=== PATIENT | male | born 1995 | race African-American/Black ===

== ENCOUNTER 2022-08-24 22:01 | Emergency (ER) | payer SELFPAY ==
[2022-08-24 22:02] VITALS: BP 173/98; PULSE 100; RESP 20; TEMP 35.6; O2SAT 97
--- NOTE | 2022-08-24 22:48 | ED.WOUNDLAC ---
HPI - Wound/Laceration General Chief Complaint: Wound/Laceration Stated Complaint: laceration Time Seen by Provider: 08/24/22 22:04 History of Present Illness HPI narrative: 27-year-old male presents to the emergency room for evaluation of a laceration to his left index finger. Patient states that he was cutting lettuce 30 minutes prior to arrival when he accidentally cut himself. Tetanus is not up-to-date. Related Data Allergies Allergy/AdvReac Type Severity Reaction Status Date / Time No Known Allergies Allergy Unverified 12/31/15 15:16 Review of Systems Review of Systems: CONSTITUTIONAL: Denies fever, chills, or sweats. EYES: Denies visual changes, redness, or discharge. ENT: Denies rhinorrhea, congestion, sore throat, or otalgia. CARDIOVASCULAR: Denies chest pain, palpitations, or edema. RESPIRATORY: Denies cough or dyspnea. GASTROINTESTINAL: Denies abdominal pain, nausea, vomiting, or diarrhea. GENITOURINARY: Denies dysuria or hematuria. SKIN: Reports laceration to his left middle finger ck pain, joint pain, or myalgia. NEUROLOGIC: Denies headache, numbness, dizziness, or weakness. PSYCHIATRIC: Denies anxiety or depression. Exam Narrative: GENERAL: Well-appearing, well-nourished, no physical limitations, and in no acute distress. HEAD: Normocephalic, atraumatic. EYES: Conjunctivae normal, PERRLA and EOMI. CHEST: Clear to auscultation. No respiratory distress. No wheezes rales or rhonchi. HEART: Regular rate and rhythm. No murmur heard. Normal peripheral pulses. EXTREMITIES: Normal range of motion. No edema. No clubbing or cyanosis SKIN: Left middle finger: 3 and half centimeter curved laceration to the tip of the finger, no nail involvement NEURO: No focal deficits. Alert and oriented x3. MAEW. CN's II-XI intact bilaterally, normal gait PSYCH: Cooperative. Normal mood and affect. Course Vital Signs Vital signs: Vital Signs Temperature 35.6 C L 08/24/22 22:02 Pulse Rate 100 08/24/22 22:02 Respiratory Rate 20 08/24/22 22:02 Blood Pressure 173/98 H 08/24/22 22:02 Pulse Oximetry 97 08/24/22 22:02 Oxygen Delivery Room Air 08/24/22 22:02 Temperature 35.6 C L 08/24/22 22:02 Pulse Rate 100 08/24/22 22:02 Respiratory Rate 20 08/24/22 22:02 Blood Pressure 173/98 H 08/24/22 22:02 Pulse Oximetry 97 08/24/22 22:02 Oxygen Delivery Room Air 08/24/22 22:02 Procedures Laceration Laceration 1: Date: 08/24/22 Time: 22:53 Site: hand Side (If applicable): left Size (cm): 3.5 Description: flap Depth: simple, single layer Local Anesthetic: lidocaine 1% Amount of anesthesia used (mL): 4 Pre-repair: irrigated ====== Skin Level ====== Skin layer closed with: nylon Size (cm): 5-0 Number of sutures: 6 Technique: simple, interrupted ====== Subcutaneous Layer ====== ====== Muscle Layer ====== ====== Tendon Layer ====== Discharge Plan Discharge Clinical Impression: Laceration Patient Disposition: Home, Self-Care Condition: Stable Instructions: Antibiotic Form, Laceration (ED) Additional Instructions: Take antibiotics as prescribed. Tylenol and ibuprofen as needed for discomfort. Keep your wound covered clean and dry. Stitches come out in 10 days. Monitor for signs of infection which include redness, swelling, purulent drainage and increased pain. Prescriptions: New cephalexin 500 mg tablet 500 mg PO Q12H 7 Days Qty: 14 0RF Follow-up/Referrals: PHYSICIAN,CELL ROOM SUPERVISOR [Primary Care Provider] - Time of Disposition: 22:50
[2022-08-24] MEDS: TETANUS,DIPHTHERIA,AC PERTUSSIS ADULT (0.5 ML) BOOSTRIX IM (22:54)
== END 2022-08-24 23:00 | disposition home or self-care (01) ==
PROVIDERS: Emergency Provider Nurse Practitioner Family
DX: Z23 Encounter for immunization (principal); Y93.G1 Activity, food preparation and clean up; W26.9XXA Contact with unspecified sharp object(s), initial encounter
CPT/HCPCS: 12002; 90471; 90715; 99283

== ENCOUNTER 2024-03-07 13:15 | Observation (INO) | payer SELFPAY ==
[2024-03-07] VITALS (15 sets, daily range): BP systolic 183–263; BP diastolic 111–149; PULSE 89–133; RESP 12–23; TEMP 36.8–37.7; O2SAT 97–99; BMI 30.7
--- NOTE | ~2024-03-07 | XR_ITS ---
EXAMINATION: XR chest 2V DATE: 03/07/2024 13:48 INDICATION: Mid chest pain. Uncontrolled hypertension. TECHNIQUE: AP and lateral views of the chest were obtained. COMPARISON: None FINDINGS: The lungs are clear with no focal airspace opacities, pulmonary edema, pleural effusion or pneumothor ax. The cardiomediastinal silhouette is normal. Visualized bones and soft tissues are unremarkable. IMPRESSION: 1. No acute cardiopulmonary disease. Reviewed, dictated and finalized at location A.
--- NOTE | 2024-03-07 13:16 | ECG_ITS ---
Test Date: 2024-03-07 13:22:14 Measurements Intervals [place] Rate: 131 P: 52 [place]: 96 QRS: 27 QRSD: 85 T: 69 QT: 294 QTc: 434 Interpretive Statements SINUS TACHYCARDIA WITH SHORT [place] INTERVAL NONSPECIFIC ST-T WAVE ABNORMALITY- DIFFUSE LEADS BASELINE ARTIFACT- I, III, AVR, AVL, V1-V4 ABNORMAL ECG No previous ECG available for comparison Electronically Signed On 03-07-2024 13:37:33 CDT by Dominick Key D.O.
[2024-03-07 13:33] LABS: Basophils Absolute Auto 0.1 K/mm3 (0.0-0.1); Basophils Percent Auto 0.6 % (0.2-1.2); Eosinophils Absolute Auto 0.1 K/mm3 (0-0.3); Eosinophils Percent Auto 0.5 % (0-4.4); Hematocrit 46.9 % (42.0-52.0); Hemoglobin 17.2 g/dL (14.0-18.0); Immature Granulocyte Absolute 0.03 K/mm3 (0.00-0.031); Immature Granulocyte Percent A 0.3 % (0-0.5); Lymphocytes Absolute Auto 2.49 K/mm3 (0.9-3.2); Lymphocytes Percent Auto 24.2 % (18.3-44.2); Mean Corpuscular HGB Conc 36.7 g/dl (32-36); Mean Corpuscular Hemoglobin 32.5 pg (26-34); Mean Corpuscular Volume 88.7 fl (80-100); Mean Platelet Volume 9.8 fl (7.4-10.4); Monocytes Absolute Auto 0.9 K/mm3 (0.1-0.6); Monocytes Percent Auto 8.9 % (2.6-8.5); Neutrophils Absolute Auto 6.7 K/mm3 (1.3-6.7); Neutrophils Percent Auto 65.5 % (45.5-73.1); Platelet Count Result 238 k/mm3 (150-375); Red Blood Count 5.29 M/mm3 (4.6-6.20); Red Cell Distribution Width 11.9 % (11.5-14.5); White Blood Count 10.3 K/mm3 (4.5-10.0)
[2024-03-07 13:45] LABS: INR 0.9; Prothrombin Time 12.8 Seconds (11.1-14.7)
[2024-03-07 13:46] LABS: Partial Thromboplastin Time 24.3 Seconds (22.3-36.8)
[2024-03-07 14:01] LABS: Troponin I < 0.012 ng/mL (0.000-0.034)
[2024-03-07 14:03] LABS: Alanine Aminotransferase 49 U/L (6-50); Alkaline Phosphatase 85 U/L (38-126); Anion Gap 16 mmol/L (4-12); Aspartate Amino Transferase 59 U/L (17-59); Blood Urea Nitrogen 8 mg/dL (9-20); Calcium 9.6 mg/dL (8.4-10.2); Carbon Dioxide 23 mmol/L (22-30); Chloride 94 mmol/L (98-107); Estimated CRCL calculation 113 ml/min; Estimated Glomerular Filt Rate > 60; Glucose 586 mg/dL (65-110); Lipase 194 U/L (23-300); Potassium 4.5 mmol/L (3.4-5.0); Sodium 133 mmol/L (137-145)
--- NOTE | 2024-03-07 14:10 | ED.GENADULT ---
HPI - General Adult General Chief complaint: Chest Pain Stated complaint: chest pain, htn Time Seen by Provider: 03/07/24 13:33 History of Present Illness HPI narrative: 29-year-old male presenting emergency department for evaluation for multiple complaints including pain into his left shoulder, hypertension. Patient was also found to be very hyperglycemic. Patient states he has not been to a doctor in many years. Patient denies any prior diagnosis of diabetes or hypertension. Related Data Home Medications Medication Instructions Recorded Confirmed diphenhydramine HCl 50 mg capsule 100 mg PO HS PRN Insomnia 03/07/24 03/07/24 (Sleep Aid (diphenhydramine)) Allergies Allergy/AdvReac Type Severity Reaction Status Date / Time No Known Allergies Allergy Unverified 12/31/15 15:16 Review of Systems Review of Systems: All systems reviewed & are unremarkable except as noted in HPI and below PMFSH Past Medical History Medical History (Updated 03/07/24 @ 19:47 by Anum Garcia APRN) Alcohol abuse Cocaine abuse Sleep apnea Family History Family History Other Skin cancer Asthma Lung cancer Sibling Diabetes mellitus Father Thyroid cancer Hypertension Mother Hypertension Social History Social History Smoking status: Current every day smoker Tobacco type: e-cigarettes/vaping Alcohol intake: current Drinks per week: 90 Substance use type: marijuana and crack/cocaine Last use: cocaine 03/06/24, marijuana 03/07/24 Do You Feel Safe in your Home?: Yes Lack of Transportation: No Lack of Food: Never True Current Housing: I Have Housing Concerned About Future Housing: No Difficulty Paying Gas/Electric Bills: No Difficulty Paying for Meds: No Currently Unemployed: No Education: Trade/Vocational Certificate Difficulty w/ Childcare or Family Care: No Spiritual care concerns: No Course Course Emergency Course: Patient's blood pressure was treated with hydralazine and metoprolol but still remained elevated. Patient has remained hyperglycemic and will be admitted for new onset diabetes. Vital Signs Vital signs: Vital Signs Temperature 99.2 F 03/07/24 13:19 Pulse Rate 133 H 03/07/24 13:19 Respiratory Rate 23 H 03/07/24 13:19 Blood Pressure 263/149 H 03/07/24 13:19 Pulse Oximetry 99 03/07/24 13:19 Oxygen Delivery Room Air 03/07/24 13:19 Temperature 98.3 F 03/07/24 20:00 Pulse Rate 99 03/07/24 20:00 Respiratory Rate 18 03/07/24 20:00 Blood Pressure 191/111 H 03/07/24 20:00 Pulse Oximetry 99 03/07/24 20:00 Oxygen Delivery Room Air 03/07/24 20:00 Medical Decision Making MDM Narrative Medical decision making narrative: 29-year-old male present to the emergency department for evaluation for hypertension and was found to be hyperglycemic. Patient is afebrile but does have a leukocytosis of 10.3 and hemoglobin of 17.2. Patient has a normal creatinine and a minor anion gap. Patient's blood goes close was elevated at 500. Patient's beta hydroxybutyrate was not significantly elevated. I do not think this is DKA. Patient was treated IV fluids and insulin boluses and patient's labs did improve. Case was discussed with hospitalist patient was accepted for admission to the IMU for hypertension and hyperglycemia Differential Diagnosis Differential Diagnosis: new onset diabetes, hypertension, ACS, pulmonary embolism Vital Signs Vital Signs: Vital Signs Temperature 99.2 F 03/07/24 13:19 Pulse Rate 133 H 03/07/24 13:19 Respiratory Rate 23 H 03/07/24 13:19 Blood Pressure 263/149 H 03/07/24 13:19 Pulse Oximetry 99 03/07/24 13:19 Oxygen Delivery Room Air 03/07/24 13:19 Temperature 98.3 F 03/07/24 20:00 Pulse Rate 99 03/07/24 20:00 Respiratory Rate 18 03/07/24 20:00 Blood Pressure 191/11
[2024-03-07] MEDS: SODIUM CHLORIDE 0.9% IV 1,000 ML 999 ML IV CONT ×2 (14:26→15:07)
[2024-03-07] MEDS: hydrALAZINE HCL 20 MG/ML VIAL 10 MG IV PUSH ×2 (14:26→15:07)
[2024-03-07] MEDS: INSULIN HUMAN REGULAR (*BKC) 100 UNITS/ML 9 UNITS IV PUSH (14:27)
[2024-03-07] MEDS: METOPROLOL TARTRATE 25 MG TABLET PO (15:07)
[2024-03-07 15:26] LABS: Glucose Point of Care 427 mg/dl (65-105)
--- NOTE | 2024-03-07 16:17 | ECG_ITS ---
Test Date: 2024-03-07 16:19:24 Measurements Intervals [place] Rate: 89 P: 57 [place]: 147 QRS: 26 QRSD: 85 T: 46 QT: 376 QTc: 459 Interpretive Statements SINUS RHYTHM MODERATE T-WAVE ABNORMALITY, CONSIDER ANTEROLATERAL ISCHEMIA BASELINE ARTIFACT- I, II ABNORMAL ECG Compared to ECG 03/07/2024 13:22:14 HEART RATE HAS DECRASED T-wave abnormality now present Electronically Signed On 03-07-2024 20:39:21 CDT by Dominick Key D.O.
[2024-03-07 16:32] LABS: Troponin I < 0.012 ng/mL (0.000-0.034)
[2024-03-07 16:37] LABS: Glucose Point of Care 327 mg/dl (65-105)
[2024-03-07] MEDS: SODIUM CHLORIDE 0.9% IV 1,000 ML 125 ML IV CONT (16:52)
--- NOTE | 2024-03-07 17:02 | PC.NURSE ---
attempted to call IMU at this time to give report but the nurse was unavailable
[2024-03-07 17:38] LABS: Anion Gap 9 mmol/L (4-12); Blood Urea Nitrogen 8 mg/dL (9-20); Calcium 8.5 mg/dL (8.4-10.2); Carbon Dioxide 23 mmol/L (22-30); Chloride 104 mmol/L (98-107); Estimated CRCL calculation 147 ml/min; Estimated Glomerular Filt Rate > 60; Glucose 302 mg/dL (65-110); Potassium 3.7 mmol/L (3.4-5.0); Sodium 136 mmol/L (137-145)
--- NOTE | 2024-03-07 17:48 | ADMGEN ---
This patient, [place], was admitted to IMU Room 212-01. Patient/family oriented to hospital policies and general routines including ID bracelet, bed and alarms, visiting hours, pain management, procedures, bathroom and other care routines, personal items, smoking policy, room service/diet, and visiting hours. Information on how to activate the Rapid Response Team has been discussed. Patient/Family are encouraged to report perceived risks to care and to ask questions if they do not understand what they are told or what they should do.
--- NOTE | 2024-03-07 18:19 | PM.IMHP ---
H&P: HPI History of Present Illness Date/Time: 03/07/24 18:19 Chief Complaint: HTN, Arm Pain Narrative: 29-year-old male presents here with high blood pressure and left shoulder pain with PMH of alcohol abuse and occasional cocaine use. The patient presents here from home with high blood pressure and left arm pain. Has known he has high blood pressure for the past year because he went to donate plasma around a year ago and was told his blood pressure was too high to donate (180/100). Patient tried to walk more and drink more water for a week and returned but blood pressure was again around 180/100. No prior diagnosis of hypertension, does have family hx (parents). Endorses intermittent polyuria that has been ongoing for a few years and more so at night, mild polydipsia that he notices in the mornings for the past few months, intermittent dry mouth, mild blurred vision most notable at night, and weight loss (20 lbs) over the last 6 months. Denying recurrent infections or excessive hunger. Daily alcohol use - approximates a fifth or a half of a fifth daily. Interested in cessation due to interference in his life, gave example that he has had to drink to fall asleep but would wake a few hours later feeling terrible. Has attempted cessation 2 years ago, able to stop for 75 days and did not have any withdrawal symptoms at that time. Believes he was drinking a similar amount at the time. Will occasionally have fine tremor or nausea that would occur in the mornings. Patient has not been seen by a primary in 2017. Also has cocaine use, approximates that he uses once every few months. Most recent use was yesterday. Originally sought care due to intermittent left arm pain for the past 5 days. Worsened with palpation, has largely resolved today. [place] as though the pain started in his c-spine and radiated into his shoulder blade. Denies dysuria, skin infections, shortness of breath, chest pain, abdominal pain, or palpitations. Initial VS at presentation: 99.2? F, HR 133, RR 23, 263/149, and 99% on RA. ED workup showed: WBC 10.3, no anemia, normal coags, D-dimer negative, sodium 136, creatinine 0.6 and GFR >60, glucose 586, troponin negative x2, beta hydroxy 0.3. CXR showed no acute cardiopulmonary disease. EKG showed sinus tachycardia with short NH interval, rate 131, nonspecific ST-T-wave abnormality diffuse leads, baseline artifact. No previous available for comparison. Review of Systems Review of Systems: All systems reviewed & are unremarkable except as noted in HPI and below [facility] Past Medical History Medical History (Updated 03/07/24 @ 19:47 by Anum Garcia APRN) Alcohol abuse Cocaine abuse Sleep apnea Family History Family History Other Skin cancer Asthma Lung cancer Sibling Diabetes mellitus Father Thyroid cancer Hypertension Mother Hypertension Social History Social History Smoking status: Current every day smoker Tobacco type: e-cigarettes/vaping Alcohol intake: current Drinks per week: 90 Substance use type: marijuana and crack/cocaine Last use: cocaine 03/06/24, marijuana 03/07/24 Do You Feel Safe in your Home?: Yes Lack of Transportation: No Lack of Food: Never True Current Housing: I Have Housing Concerned About Future Housing: No Difficulty Paying Gas/Electric Bills: No Difficulty Paying for Meds: No Currently Unemployed: No Education: Trade/Vocational Certificate Difficulty w/ Childcare or Family Care: No Spiritual care concerns: No Meds Home Medications and Allergies Home Medications Medication Instructions Recorded Confirmed Type diphenhydramine HCl 50 mg capsule 100 mg PO HS PRN Insomnia 03/07/24 03/07/24 History (Sleep Aid (diphenhydramine)) Allergies Allergy/AdvReac Type Severity Reaction Status Date / Time No Known Allergies Allergy Unv
[2024-03-07 18:47] LABS: Appearance Urine Clear (Clear); Bilirubin Urine Negative (Negative); Blood Urine Negative (Negative); Color Urine Yellow (Yellow); Glucose Urine UA 3+ mg/dL (Negative); Ketones Urine Trace mg/dL (Negative); Leukocyte Esterase Ur Negative LEU/UL (Negative); Nitrate Urine Negative (Negative); Protein Urine Negative (Negative); Specific Grav Ur 1.026 (1.001-1.035); pH Urine 7.5 (5.0-9.0)
[2024-03-07 18:48] LABS: Add Urine Microscopic? NO
--- NOTE | 2024-03-07 19:02 | ECG_ITS ---
Test Date: 2024-03-07 19:16:53 Measurements Intervals [place] Rate: 98 P: 56 [place]: 135 QRS: 37 QRSD: 105 T: 166 QT: 356 QTc: 456 Interpretive Statements SINUS RHYTHM MODERATE T-WAVE ABNORMALITY, CONSIDER ANTEROLATERAL ISCHEMIA BASELINE ARTIFACT- I, III, AVR, AVL, V3 ABNORMAL ECG Compared to ECG 03/07/2024 16:19:24 No significant changes Electronically Signed On 03-07-2024 20:31:13 CDT by Dominick Key D.O.
[2024-03-07 19:35] LABS: Troponin I < 0.012 ng/mL (0.000-0.034)
[2024-03-07] MEDS: amLODIPine BESYLATE 10 MG TABLET PO (19:58)
[2024-03-07 20:01] LABS: NT Pro B Type Natriuretic Pept 136 pg/mL (19.9-100)
[2024-03-07 20:30] LABS: Cholesterol 241 mg/dL (0-200); HDL Direct 58 mg/dL; Triglycerides 107 mg/dL (<150)
[2024-03-07 20:47] LABS: LDL Cholesterol Direct 166 mg/dL
[2024-03-07 21:18] LABS: Glucose Point of Care 308 mg/dl (65-105)
[2024-03-07 22:39] LABS: Hemoglobin A1C 12.1 % (<5.7)
--- NOTE | 2024-03-07 23:39 | PCRCNOTE ---
patient refused apnea study; Also, RN stated that vital signs would be checked frequently.
[2024-03-08] VITALS (16 sets, daily range): BP systolic 174–205; BP diastolic 112–138; PULSE 79–100; RESP 16–18; TEMP 36.2–36.4; O2SAT 97–100; BMI 31.1
[2024-03-08] MEDS: hydrALAZINE HCL 20 MG/ML VIAL 10 MG IV PUSH (00:01)
[2024-03-08] MEDS: SODIUM CHLORIDE 0.9% IV 1,000 ML 125 ML IV CONT ×2 (01:03→09:23)
[2024-03-08 04:23] LABS: Basophils Absolute Auto 0.1 K/mm3 (0.0-0.1); Basophils Percent Auto 0.5 % (0.2-1.2); Eosinophils Absolute Auto 0.1 K/mm3 (0-0.3); Hematocrit 46.6 % (42.0-52.0); Hemoglobin 16.6 g/dL (14.0-18.0); Immature Granulocyte Absolute 0.02 K/mm3 (0.00-0.031); Immature Granulocyte Percent A 0.2 % (0-0.5); Lymphocytes Absolute Auto 2.86 K/mm3 (0.9-3.2); Lymphocytes Percent Auto 29.1 % (18.3-44.2); Mean Corpuscular HGB Conc 35.6 g/dl (32-36); Mean Corpuscular Hemoglobin 32.5 pg (26-34); Mean Corpuscular Volume 91.2 fl (80-100); Mean Platelet Volume 9.8 fl (7.4-10.4); Monocytes Absolute Auto 1.2 K/mm3 (0.1-0.6); Monocytes Percent Auto 12.3 % (2.6-8.5); Neutrophils Absolute Auto 5.6 K/mm3 (1.3-6.7); Neutrophils Percent Auto 56.9 % (45.5-73.1); Platelet Count Result 212 k/mm3 (150-375); Red Blood Count 5.11 M/mm3 (4.6-6.20); White Blood Count 9.8 K/mm3 (4.5-10.0)
[2024-03-08 04:39] LABS: Alanine Aminotransferase 41 U/L (6-50); Albumin Level 4.6 g/dL (3.5-5.1); Alkaline Phosphatase 70 U/L (38-126); Anion Gap 11 mmol/L (4-12); Aspartate Amino Transferase 40 U/L (17-59); Bilirubin,Total 1.1 mg/dL (0.2-1.3); Blood Urea Nitrogen 9 mg/dL (9-20); Calcium 9.2 mg/dL (8.4-10.2); Carbon Dioxide 26 mmol/L (22-30); Chloride 101 mmol/L (98-107); Estimated CRCL calculation 146 ml/min; Estimated Glomerular Filt Rate > 60; Glucose 274 mg/dL (65-110); Potassium 3.6 mmol/L (3.4-5.0); Sodium 138 mmol/L (137-145)
[2024-03-08] MEDS: amLODIPine BESYLATE 10 MG TABLET PO (09:23)
[2024-03-08] MEDS: INSULIN ASPART (*BKC) 100 UNITS/ML SUB-Q ×3 (10:06→16:37)
[2024-03-08 13:11] LABS: Glucose Point of Care 268 mg/dl (65-105)
[2024-03-08 13:11] LABS: Glucose Point of Care 249 mg/dl (65-105)
[2024-03-08] MEDS: metFORMIN HCL XR 500 MG TAB.SR.24H PO ×2 (13:25→16:37)
[2024-03-08] MEDS: glipiZIDE 2.5 MG TABLET PO (13:25)
[2024-03-08] MEDS: lisinopriL 10 MG TABLET PO (13:25)
--- NOTE | 2024-03-08 15:32 | WPDPN ---
Progress Note: A&P Assessment and Plan (1) Hypertensive urgency: Code(s): I16.0 - Hypertensive urgency Status: Acute Assessment and Plan: - initial BP: 263/149 with MAP of 187; current BP: 191/113 with MAP of 139 (26% reduction in MAP) - given ASA 324, Hydralazine 10 mg IVP x2, metoprolol 25 mg PO in the ED - goal BP <160/<100 mmHg - new CM dx with no protein/albuminuria present, will start Amlodipine 10 mg daily with first dose now - hydralazine 10 mg IVP PRN for BP greater than 160/100 - monitor renal function. add BNP, lipid panel, and A1C. - apnea link - extensive education provided to patient, will need information reiterated - admission to IMU for close monitoring (2) Diabetes mellitus, new onset: Code(s): E11.9 - Type 2 diabetes mellitus without complications Status: Acute Assessment and Plan: - initial glucose 586, given 2L bolus of IV fluids and 9 units of regular insulin -> 302 - hypoglycemia protocol - POC blood glucose ACHS - correct regimen ordered - moderate dose TIDWM, based off BMI (30.8) - A1C ordered - asthma educator consulted - extensive education provided to patient, will need information reiterated Plan Patient here with New onset diabetes with initial glucose at 586. Improved with IV fluids and regular insulin. Sliding scale initiated, asthma educator consulted, and A1c pending. Facial also here with hypertension, initial blood pressure to 63/149. Improved to 191/111 with hydralazine IVP and metoprolol p.o. starting amlodipine 10 mg, 1st dose this evening. A1C, lipid panel, BNP pending. Interval history 03/08/2024: patient with new onset DM most likely type II, and HTN, A1c is 12, diabetes and and HTN runs in the family and patient is obese with BMI of 31, patient was seen by asthma educator and was educated, will start metforminxl 500mg BID and glucotrolxl 2.5, and monitor, patient blood pressure is elevated was started on Amlodipine and will add lisinopril 10mg daily, will monitor. Diet: diabetic GI Prophylaxis: not currently indicated DVT Prophylaxis: SCDs Lines: peripheral Code Status: full code Subjective Date/time seen: 03/08/24 15:32 Interval history: HTN, Arm Pain Narrative: 29-year-old male presents here with high blood pressure and left shoulder pain with PMH of alcohol abuse and occasional cocaine use. The patient presents here from home with high blood pressure and left arm pain. Has known he has high blood pressure for the past year because he went to donate plasma around a year ago and was told his blood pressure was too high to donate (180/100). Patient tried to walk more and drink more water for a week and returned but blood pressure was again around 180/100. No prior diagnosis of hypertension, does have family hx (parents). Endorses intermittent polyuria that has been ongoing for a few years and more so at night, mild polydipsia that he notices in the mornings for the past few months, intermittent dry mouth, mild blurred vision most notable at night, and weight loss (20 lbs) over the last 6 months. Denying recurrent infections or excessive hunger. Daily alcohol use - approximates a fifth or a half of a fifth daily. Interested in cessation due to interference in his life, gave example that he has had to drink to fall asleep but would wake a few hours later feeling terrible. Has attempted cessation 2 years ago, able to stop for 75 days and did not have any withdrawal symptoms at that time. Believes he was drinking a similar amount at the time. Will occasionally have fine tremor or nausea that would occur in the mornings. Patient has not been seen by a primary in 2017. Also has cocaine use, approximates that he uses once every few months. Most recent use was yesterday. Originally sought care due to intermittent left arm pain for the past 5 days. Worsened with palpation, has largely resolved today. [place] as though the pain started in his
[2024-03-08 16:20] LABS: Glucose Point of Care 209 mg/dl (65-105)
[2024-03-08 21:40] LABS: Glucose Point of Care 179 mg/dl (65-105)
[2024-03-09] VITALS (10 sets, daily range): BP systolic 147–189; BP diastolic 100–126; PULSE 66–102; RESP 16–20; TEMP 36.4–36.8; O2SAT 100
[2024-03-09] MEDS: glipiZIDE 2.5 MG TABLET PO (06:15)
[2024-03-09 08:01] LABS: Glucose Point of Care 273 mg/dl (65-105)
[2024-03-09] MEDS: amLODIPine BESYLATE 10 MG TABLET PO (09:53)
[2024-03-09] MEDS: metFORMIN HCL XR 500 MG TAB.SR.24H PO (09:53)
[2024-03-09] MEDS: lisinopriL 10 MG TABLET PO (09:53)
[2024-03-09] MEDS: INSULIN ASPART (*BKC) 100 UNITS/ML SUB-Q (09:55)
--- NOTE | 2024-03-09 12:18 | PM.IMPN ---
Subjective Date/time seen: 03/09/24 12:18 Objective Data Vital Signs Vital Signs: Vital Signs - 24 hr 03/08/24 14:00 03/08/24 14:30 03/08/24 15:15 Temperature Pulse Rate 88 Respiratory Rate Blood Pressure 198/138 H 174/112 H Pulse Oximetry Oxygen Delivery 03/08/24 16:00 03/08/24 16:00 03/08/24 18:00 Temperature 97.1 F L Pulse Rate 87 98 79 Respiratory Rate 18 Blood Pressure 184/113 H Pulse Oximetry 100 Oxygen Delivery 03/08/24 16:00 03/08/24 20:00 03/08/24 20:00 Temperature 97.3 F L Pulse Rate 92 86 Respiratory Rate 18 Blood Pressure 190/120 H Pulse Oximetry 100 Oxygen Delivery Room Air 03/08/24 20:00 03/08/24 21:25 03/08/24 23:15 Temperature Pulse Rate 86 86 82 Respiratory Rate 18 Blood Pressure Pulse Oximetry 100 Oxygen Delivery Room Air 03/08/24 23:15 03/09/24 00:00 03/09/24 02:00 Temperature 97.6 F Pulse Rate 82 86 78 Respiratory Rate 18 18 Blood Pressure 180/118 H Pulse Oximetry 100 100 Oxygen Delivery Room Air 03/09/24 04:00 03/09/24 04:00 03/09/24 04:00 Temperature 97.6 F Pulse Rate 86 86 88 Respiratory Rate 18 18 Blood Pressure 189/126 H Pulse Oximetry 100 100 Oxygen Delivery Room Air 03/09/24 06:00 03/09/24 08:00 03/09/24 08:31 Temperature 98.2 F Pulse Rate 66 102 H Respiratory Rate 16 Blood Pressure 175/123 H 182/120 H Pulse Oximetry 100 Oxygen Delivery Intake/Output Intake/Output: Intake & Output 03/06/24 03/07/24 03/08/24 03/09/24 23:59 23:59 23:59 23:59 Intake Total 1999 3271 500 Balance 1999 3271 500 Meds/Results Medications: Active Medications Generic Name Dose Route Start Last Admin Trade Name Freq PRN Reason Stop Dose Admin Amlodipine Besylate 10 mg 03/07/24 19:15 03/09/24 09:53 Amlodipine Besylate 10 Mg Tablet PO 10 mg DAILY OSMAN Administration Dextrose 12.5 gm 03/07/24 19:20 Dextrose 50% 25 Gm/50 Ml Syringe IV PUSH PRN PRN Hypoglycemia Protocol Diphenhydramine HCl 100 mg 03/07/24 19:18 Diphenhydramine Hcl Cap 25 Mg Capsule PO HS PRN Insomnia Glipizide 2.5 mg 03/08/24 12:05 03/09/24 06:15 Glipizide 2.5 Mg Tablet PO 2.5 mg DAILY@0630 OSMAN Administration Glucagon 1 mg 03/07/24 19:20 Glucagon For Inj 1 Mg Vial IM PRN PRN Hypoglycemia Protocol Glucose 15 gm 03/07/24 14:08 Glucose Oral Gel 15 Gm Of Glucse In 37.5 Gm Tube PO PRN PRN Hypoglycemia Protocol Hydralazine HCl 10 mg 03/07/24 22:00 03/08/24 00:01 Hydralazine Hcl 20 Mg/Ml Vial IV PUSH 10 mg Q8H PRN Administration BP Goal <160/100 Dextrose 1,000 mls @ 100 mls/hr 03/07/24 19:20 Dextrose 5% 1,000 Ml IVPB PRN PRN Hypoglycemia Protocol Insulin Aspart 3 - 6 units 03/08/24 08:00 03/09/24 12:10 Insulin Aspart (*Bkc) 100 Units/Ml SUB-Q Not Given TIDWM [facility] Protocol Lisinopril 10 mg 03/08/24 13:03 03/09/24 09:53 Lisinopril 10 Mg Tablet PO 10 mg DAILY OSMAN Administration Metformin HCl 500 mg 03/08/24 12:00 03/09/24 09:53 Metformin Hcl Xr 500 Mg Tab.Sr.24h PO 500 mg BIDWM OSMAN Administration Radiology Results: ITS Impressions Chest X-Ray 03/07/24 13:56 IMPRESSION: 1. No acute cardiopulmonary disease. Labs Labs: Laboratory Results - last 24 hr 03/08/24 03/08/24 03/08/24 08:26 11:30 16:17 POC Capillary Glucose 268 H 249 H 209 H 03/08/24 03/09/24 21:33 07:52 POC Capillary Glucose 179 H 273 H Hospitalist MIPS Advance Care Plan I have confirmed that the patient's Advanced Care Plan is present, code status is documented, or surrogate decision maker is listed in patient medical record.: Yes
[2024-03-09 12:36] LABS: Glucose Point of Care 196 mg/dl (65-105)
[2024-03-09] MEDS: cloNIDine HCL 0.1 MG TABLET PO (13:23)
--- NOTE | 2024-03-09 15:06 | PM.DS ---
DS: Admitting Diagnosis Discharge Date 03/09/2024 Admitting Diagnosis Hypertensive urgency DS: Discharge Diagnosis Discharge Diagnosis (1) Hypertensive urgency: Code(s): I16.0 - Hypertensive urgency Status: Acute (2) Diabetes mellitus, new onset: Code(s): E11.9 - Type 2 diabetes mellitus without complications Status: Acute DS: Summary Hospital Course Reason for hospitalization: Lightheaded with elevated outpatient home blood pressure reading Hospital Course: 29-year-old gentleman did a line of cocaine March 06. March 07 he was not feeling well. [place] light[place]. Bar difference blood pressure cuff and it was in the 200s over 180s. Presented to the emergency department and blood pressure was 220s over 180s. Was also hyperglycemic at 586. Anion gap was mildly elevated at 16 and beta hydroxybutyrate was mildly elevated at 0.3. He was given insulin initially and transitioned to p.o. meds. He continue with sliding scale insulin. He was treated with glipizide and metformin. He has a strong family history of type 2 diabetes in both parents and an and older brother. He also has a strong family history of hypertension in both parents. In the emergency depart he was treated with a total of 20 mg of IV hydralazine and 25 mg of metoprolol. His pressure improved minimally. However by 2nd day of hospitalization is blood pressure was 20 5% better. By day of discharge is 1 additional dose of clonidine 0.1 mg his blood pressure decreased to 147/100. He was having no symptoms of elevated blood pressure. 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 He did admit to drinking heavily but has stopped and has no symptoms of alcohol withdrawal. He is stop before without and symptoms of alcohol withdrawal. He drinks about 1/2 of a 5th of vodka per day. He does go cane only recreationally and does not seek it out. He will avoid it due to fear of stroke. Time Spent with Patient Time attestation: Total time spent providing and/or coordinating discharge services: Exam Narrative: Patient is comfortable, NAD HEENT: eyes are clear and none icteric LUNGS:CTA HEART: RR S1S2 ABD: BS+, Soft and nontender Lower extremities: no edema SKIN: nonjaundiced Neuro: grossly intact. DS: Data Data Completed and Pending Labs on day of discharge: Labs from last 24 hours 03/09/24 03/09/24 03/08/24 11:55 07:52 21:33 POC Capillary Glucose 196 H 273 H 179 H 03/08/24 16:17 POC Capillary Glucose 209 H Discharge Plan Discharge Discharging Clinician: Benson Torres Patient Disposition: Home, Self-Care Activity: no straining Diet: heart healthy, diabetic and low sodium Patient Instructions: Type 2 Diabetes in Adults: New Diagnosis (DC), Basic Carbohydrate Counting (DC), Meal Planning with the Plate Method (DC), Managing Diabetes During Sick Days (DC), Diabetic Hyperglycemia (DC), Hypertension and Diabetes (DC), Diabetes and Nutrition (DC), Hypoglycemia in Adolescents with Diabetes (DC), Type 2 Diabetes Management for Adults (DC) Stand Alone Forms: General Discharge Information, Work/School Release IP Follow-up/Referrals: Benson Torres MD [Physician] - ( to schedule appt. If unable to get through email: [email or web address]) Discharge Medications: New amlodipine 10 mg Tablet 10 mg PO DAILY Qty: 30 0RF losartan-hydrochlorothiazide 50-12.5 mg tablet 1 tablet PO DAILY Qty: 30 0RF metformin 500 mg tablet extended release 24 hr 1,000 mg PO DAILY Qty: 60 0RF glipizide 5 mg Tablet 5 mg PO DAILY@0630 Qty: 30 0RF Discontinued diphenhydramine HCl [Sleep Aid (diphenhydramine)] 50 mg Capsule 100 mg PO HS PRN (Reason: Insomnia) Date of admission: 03/07/24 16:13 Primary Care Provider: UNKNOWN,DOCTOR Admitting Provider: Erin Sanon Attending physician on admission: Erin Sanon
== END 2024-03-09 16:10 | disposition home or self-care (01) ==
LOC: ANHED 16:15 → ANHIMU 03-08 12:23
PROVIDERS: Student in an Organized Health Care Education/Training Program; Admitting Provider Family Medicine; Emergency Provider Emergency Medicine; Visit Provider Internal Medicine
DX: I16.0 Hypertensive urgency (principal); E11.65 Type 2 diabetes mellitus with hyperglycemia; I10 Essential (primary) hypertension; M25.512 Pain in left shoulder; G47.30 Sleep apnea, unspecified; F17.290 Nicotine dependence, other tobacco product, uncomplicated; F12.90 Cannabis use, unspecified, uncomplicated; F14.90 Cocaine use, unspecified, uncomplicated; E66.9 Obesity, unspecified; Z68.31 Body mass index [BMI] 31.0-31.9, adult
CPT/HCPCS: 36415; 71046; 80048; 80053; 80061; 81003; 82010; 82948; 83036; 83690; 83880; 84484; 85025; 85380; 85610; 85730; 93005; 96361; 96374; 96375; 96376; 99285; A9270; G0378; J0360; J1815; J7030